=== PATIENT | female | born 1970 ===

== ENCOUNTER → 2023-01-22 | Outpatient (CLI) | payer OTHER | END | disposition home or self-care (01) | LOC: RAD 09:29 | DX: N93.9 Abnormal uterine and vaginal bleeding, unspecified (principal); N84.0 Polyp of corpus uteri; N83.299 Other ovarian cyst, unspecified side ==

== ENCOUNTER 2023-04-10 09:19 | Outpatient (CLI) | payer OTHER | END 2023-04-10 09:24 | disposition home or self-care (01) | LOC: MRI 09:19 | PROVIDERS: ATTEND General Practice | DX: R19.09 Other intra-abdominal and pelvic swelling, mass and lump (principal) | CPT/HCPCS: 72195 ==